=== PATIENT | female | born 1995 ===

== ENCOUNTER 2018-05-04 23:08 | Emergency (ER) | payer MEDICAID ==
--- NOTE | 2018-05-05 00:33 | ED PDOC ---
HPI: Psych/Substance Abuse Time Seen by Provider: 05/04/18 23:23 Chief Complaint (Nursing): Substance Abuse Chief Complaint (Provider): Psych ED Caveat: Uncooperative History Per: Patient, EMS Onset/Duration Of Symptoms: Hrs (today) Current Symptoms Are (Timing): Still Present Additional Complaint(s): Carlene Rodgers is a 23 year old female, with unknown past medical history, who was brought to the emergency department by EMS who state patient was running on the street without pants. Patient states she was running away from [facility]. Per family, patient states she likes being in the hospital and was recently admitted at [facility]. Patient is uncooperative with history taking and is refusing to answer questions. PMD: None provided. Past Medical History Reviewed: Historical Data, Nursing Documentation, Vital Signs, Unable To Obtain Vital Signs: Last Vital Signs Temp 98.4 F 05/04/18 23:12 Pulse 66 05/04/18 23:12 Resp 16 05/04/18 23:12 BP 116/64 05/04/18 23:12 Pulse Ox 99 05/04/18 23:12 - Family History Family History: States: Unknown Family Hx - Allergies Allergies/Adverse Reactions: Allergies Allergy/AdvReac Type Severity Reaction Status Date / Time Unobtainable Allergy Verified 05/04/18 23:12 Review of Systems Review Of Systems: ROS cannot be obtained secondary to pt's inabilty to answer questions. Physical Exam - Reviewed Nursing Documentation Reviewed: Yes Vital Signs Reviewed: Yes - Physical Exam Appears: Positive for: No Acute Distress Head Exam: Positive for: ATRAUMATIC, NORMAL INSPECTION, NORMOCEPHALIC Skin: Positive for: Normal Color, Warm, Dry Eye Exam: Positive for: Normal appearance, EOMI, PERRL Neck: Positive for: Painless ROM Cardiovascular/Chest: Positive for: Regular Rate, Rhythm. Negative for: Murmur Respiratory: Positive for: Normal Breath Sounds. Negative for: Respiratory Distress Gastrointestinal/Abdominal: Positive for: Normal Exam, Soft. Negative for: Tenderness Extremity: Positive for: Normal ROM (all extremities). Negative for: Deformity Neurologic/Psych: Positive for: Alert. Negative for: Oriented (cannot assess orientation, patient is uncooperative) - Laboratory Results Result Diagrams: 05/05/18 01:10 05/05/18 01:10 - ECG O2 Sat by Pulse Oximetry: 99 (RA) Pulse Ox Interpretation: Normal Medical Decision Making Medical Decision Making: Time: 23:23 Initial Impression: 23 y/o female with nonspecific psychiatric issue at this time. Patient is uncooperative and not allowing us to draw blood. Required 4- point restraints and Ativan, will also require crisis evaluation. Initial Plan: --Acetaminophen --Alcohol serum --BMP --Drug screen, urine --Salicylate --CBC w/ differential --Ativan 2 mg IM --Haldol 5 mg IM --1:1 Observation --Restraints --Urinalysis --Reevaluation 06:25 -Patient will be screened by [facility]. Patient becoming agitated and trying to hit 1 :1. Requiring additional four-point restraints and Ativan. 07:00 -Patient will be signed out to Dr. Rollins, pending [facility] screen. ----- Scribe Attestation: Documented by Huy Jung, acting as a scribe for Joaquin Catherine MD. Provider Scribe Attestation: All medical record entries made by the Scribe were at my direction and personally dictated by me. I have reviewed the chart and agree that the record accurately reflects my personal performance of the history, physical exam, medical decision making, and the department course for this patient. I have also personally directed, reviewed, and agree with the discharge instructions and disposition. Disposition - Clinical Impression Clinical Impression: Schizophrenia, Bipolar 1 disorder - Patient ED Disposition Is Patient to be Admitted: Transfer of Care - Disposition Disposition: Transfer of Care Disposition Time: 07:00 Condition: STABLE Forms: [facility] (Upper Sorbian) Patient Signed Over To: Charlie Rollins Handoff Comments: pending [facility] eval
[2018-05-05 01:13] LABS: BASO % 0.3 % (0.0-2.0); EOS # 0.1 K/uL (0.0-0.7); HEMOGLOBIN 13.1 g/dL (12.0-16.0); LYMPH # 3.1 K/uL (1.0-4.3); LYMPH % 31.6 % (20.0-40.0); MEAN CELL VOLUME 93.4 fl (81.0-99.0); MEAN CORPUSCULAR HEMOGLOBIN 31.6 pg (27.0-31.0); MEAN CORPUSCULAR HGB CONC 33.8 g/dL (33.0-37.0); MEAN PLATELET VOLUME 7.5 fl (7.2-11.7); MONO # 0.8 K/uL (0.0-0.8); MONO % 8.1 % (0.0-10.0); NEUT # 5.8 K/uL (1.8-7.0); NRBC % 0.1 % (0.0-0.0); RBC 4.16 Mil/uL (3.80-5.20); RED CELL DISTRIBUTION WIDTH 11.7 % (11.5-14.5); WHITE BLOOD COUNT 9.9 K/uL (4.8-10.8)
[2018-05-05 01:24] LABS: ACETAMINOPHEN < 10.0 ug/ml (10.0-30.0); BLOOD UREA NITROGEN 12 mg/dl (7-17); CALCIUM 9.4 mg/dL (8.4-10.2); GFR NON-AFRICAN AMERICAN > 60; SALICYLATE < 1.0 mg/dl
[2018-05-05 06:33] LABS: SQUAMOUS EPITHIAL 1 /hpf (0-5); URINE BACTERIA OCC (<OCC); URINE BILIRUBIN NEGATIVE (NEGATIVE); URINE BLOOD NEGATIVE (NEGATIVE); URINE CLARITY SLIGHTY-CLOUDY (Clear); URINE COLOR YELLOW (YELLOW); URINE GLUCOSE (UA) NEG (Normal); URINE LEUKOCYTE ESTERASE NEG Leu/uL (Negative); URINE PROTEIN 30 mg/dL (NEGATIVE); URINE UROBILINOGEN 0.2-1.0 mg/dL (0.2-1.0)
[2018-05-05 06:50] LABS: BARBITURATES, UR NEGATIVE (NEGATIVE); BENZODIAZEPINES, UR NEGATIVE (NEGATIVE); OPIATES, UR NEGATIVE (NEGATIVE); PHENCYCLIDINE, UR NEGATIVE (NEGATIVE)
--- NOTE | 2018-05-05 07:45 | ED PDOC ---
- Laboratory Results Result Diagrams: 05/05/18 01:10 05/05/18 01:10 - ECG O2 Sat by Pulse Oximetry: 100 Medical Decision Making Medical Decision Making: Medically stable for psychiatric admission Disposition - Clinical Impression Clinical Impression: Schizophrenia, Bipolar 1 disorder - POA Present On Arrival: None - Disposition Disposition: Transfer of Care Disposition Time: 15:00 Condition: FAIR Forms: [facility] (French) Patient Signed Over To: Judy Prince
--- NOTE | 2018-05-05 15:06 | RAD ---
Date of service: 05/05/2018 HISTORY: psychosis COMPARISON: No prior. FINDINGS: LUNGS: No active pulmonary disease. PLEURA: No significant pleural effusion identified, no pneumothorax apparent. CARDIOVASCULAR: Normal. OSSEOUS STRUCTURES: No significant abnormalities. VISUALIZED UPPER ABDOMEN: Normal. OTHER FINDINGS: None. IMPRESSION: No active disease.
--- NOTE | 2018-05-05 15:11 | ED PDOC ---
- Laboratory Results Result Diagrams: 05/05/18 01:10 05/05/18 01:10 - ECG O2 Sat by Pulse Oximetry: 99 (RA) Pulse Ox Interpretation: Normal Medical Decision Making Medical Decision Making: Time: 1500 -- Received endorsement from Dr. Rollins. Patient medically cleared on earlier shift and is accepted by [facility] for inpatient involuntary psychiatric unit, pending bed availability. 1930 Pt agitated. Ativan 2mg po. 12am Endorsed to Dr Paz. Pending bed availability. STable Scribe Attestation: Documented by Roz Goel acting as a scribe for Dr. Judy Prince. Provider Scribe Attestation: All medical record entries made by the Scribe were at my direction and personally dictated by me. I have reviewed the chart and agree that the record accurately reflects my personal performance of the history, physical exam, medical decision making, and the department course for this patient. I have also personally directed, reviewed, and agree with the discharge instructions and disposition. Disposition - Clinical Impression Clinical Impression: Schizophrenia, Bipolar 1 disorder - POA Present On Arrival: None - Disposition Disposition: Transfer of Care Disposition Time: 00:00 Condition: STABLE Forms: [facility] (Wolof)
--- NOTE | 2018-05-06 00:11 | ED PDOC ---
- Laboratory Results Result Diagrams: 05/05/18 01:10 05/05/18 01:10 - ECG O2 Sat by Pulse Oximetry: 99 (RA) Medical Decision Making Medical Decision Making: Time: 00:00 --Patient has already been accepted and was cleared medically on previous shift. Patient care endorsed from Dr. Prince to Dr. Paz pending [facility] bed availability. Scribe Attestation: Documented by Samuel Ko acting as a scribe for Kirti Paz MD. Provider Scribe Attestation: All medical record entries made by the Scribe were at my direction and personally dictated by me. I have reviewed the chart and agree that the record accurately reflects my personal performance of the history, physical exam, medical decision making, and the department course for this patient. I have also personally directed, reviewed, and agree with the discharge instructions and disposition. Disposition - Clinical Impression Clinical Impression: Schizophrenia, Bipolar 1 disorder - POA Present On Arrival: None - Disposition Disposition: Transfer of Care Disposition Time: 07:00 Condition: STABLE Patient Signed Over To: Charlie Rollins
--- NOTE | 2018-05-06 11:55 | CARD ---
APPROVED REPORT Date of service: 05/05/2018 EKG Measurement Heart [id number] <Conclusion> Normal sinus rhythm with sinus arrhythmia early repolarization otherwise normal ECG
--- NOTE | 2018-05-06 14:02 | ED PDOC ---
- Laboratory Results Result Diagrams: 05/05/18 01:10 05/05/18 01:10 - ECG O2 Sat by Pulse Oximetry: 100 Disposition - Clinical Impression Clinical Impression: Schizophrenia, Bipolar 1 disorder - POA Present On Arrival: None - Disposition Disposition: Transfer of Care Disposition Time: 15:00 Condition: FAIR Forms: [facility] (Setswana) Patient Signed Over To: Yakov Vázquez III
--- NOTE | 2018-05-06 17:09 | ED PDOC ---
- Laboratory Results Result Diagrams: 05/05/18 01:10 05/05/18 01:10 - ECG O2 Sat by Pulse Oximetry: 100 Medical Decision Making Medical Decision Making: received 3pm pending [facility] [place]. Patient with intermittent agitation, required additional dose ativan 2mg PO for anxiolysis and relief of agitation. 730p patient given haldol 5mg and benadryl 25mg IM for moderate agitation, pacing, and hope for improved lucidity 10pm Dr Powell psychiatry in ED for evaluation 12MN endorse Dr Prince overnight pending bed avail at [facility] Disposition - Clinical Impression Clinical Impression: Schizophrenia, Bipolar 1 disorder - POA Present On Arrival: None - Disposition Disposition: Transfer of Care Disposition Time: 23:50 Condition: STABLE Forms: [facility] (Welsh)
[2018-05-06] MEDS ORDERED: DiphenhydrAMINE 50 mg/ml Inj IM STA (19:40)
[2018-05-06] MEDS ORDERED: DiphenhydrAMINE 50 mg/ml Inj ONE (19:42)
--- NOTE | 2018-05-06 21:57 | CP.PCM.CON ---
History of Present Illness - History of Present Illness History of Present Illness: This is 22 yr old female with h/o bipolar disorder admitted because of bizarre behaviors and psychotic agitation and very poor historian with disorganized thinking.pt has been very labile and anxious to leave and says ."you are not my doctor." pt has remained with poor insight regarding her psychotic symptoms and says , I am fine " does not want to be admitted voluntarily.pt has been seen by screener from [facility] and accepted for involuntary admission. Past Patient History - Past Social History Smoking Status: Unknown If Ever Smoked - CARDIAC Hx Cardiac Disorders: (unable to assess) Hx Hypertension: (unable to assess) - PULMONARY Hx Tuberculosis: (unable to assess) - NEUROLOGICAL HX Cerebrovascular Accident: (unable to assess) Hx Seizures: (unable to assess) - HEMATOLOGICAL/ONCOLOGICAL Hx Cancer: (unable to assess) Hx Human Immunodeficiency Virus (HIV): (unable to assess) - GENITOURINARY/GYNECOLOGICAL Hx Sexually Transmitted Disorders: (unable to assess) - PSYCHIATRIC Hx Substance Use: (uknown) - SURGICAL HISTORY Hx Surgeries: No - ANESTHESIA Hx Anesthesia: No Meds Allergies/Adverse Reactions: Allergies Allergy/AdvReac Type Severity Reaction Status Date / Time Unobtainable Allergy Verified 05/04/18 23:12 - Medications Medications: Current Medications Lorazepam (Ativan) 2 mg IM PRN PRN PRN Reason: Agitation Last Admin: 05/05/18 07:00 Dose: 2 mg Physical Exam - Psychiatric Exam Psychiatric exam: Agitated, Flat Affect, Manic Additional comments: alert,oriented x3 with disorganized thinking and delusional and paranoid , responding to hallucinations .pt has poor insight and poor judgement .no suicidal ideation but unable to take care of herself. Results - Vital Signs Recent Vital Signs: Last Vital Signs Temp 97.9 F 05/06/18 19:45 Pulse 88 05/06/18 19:45 Resp 18 05/06/18 19:45 BP 118/77 05/06/18 19:45 Pulse Ox 99 05/06/18 19:45 - Labs Result Diagrams: 05/05/18 01:10 05/05/18 01:10 Assessment & Plan - Assessment and Plan (Free Text) Assessment: schizophrenia,paranoid type Plan: Continue 1:1 observation. haldol and benadryl prn transfer pt to [facility] when bed is available
--- NOTE | 2018-05-07 00:25 | ED PDOC ---
- Laboratory Results Result Diagrams: 05/05/18 01:10 05/05/18 01:10 - ECG O2 Sat by Pulse Oximetry: 100 Medical Decision Making Medical Decision Makin Received transfer of care from Dr. Vázquez. Patient awaiting transfer to [facility] involuntary psych unit. [address] Rollins pending transfer to [facility] involuntary psych unit. Scribe Attestation: Documented by Luca Urbina, acting as a scribe for Judy Prince MD. Provider Scribe Attestation: All medical record entries made by the Scribe were at my direction and personally dictated by me. I have reviewed the chart and agree that the record accurately reflects my personal performance of the history, physical exam, medical decision making, and the department course for this patient. I have also personally directed, reviewed, and agree with the discharge instructions and disposition. Disposition - Clinical Impression Clinical Impression: Schizophrenia, Bipolar 1 disorder - POA Present On Arrival: None - Disposition Disposition: Transfer of Care Disposition Time: 07:00 Condition: STABLE Patient Signed Over To: Charlie Rollins Handoff Comments: pending transfer to [facility]
[2018-05-07] MEDS ORDERED: DiphenhydrAMINE 50 mg/ml Inj ONE (02:09)
--- NOTE | 2018-05-07 07:08 | ED PDOC ---
- Laboratory Results Result Diagrams: 05/05/18 01:10 05/05/18 01:10 - ECG O2 Sat by Pulse Oximetry: 100 Disposition - Clinical Impression Clinical Impression: Schizophrenia, Bipolar 1 disorder - POA Present On Arrival: None - Disposition Disposition: Other Institution Disposition Time: 14:34 Condition: FAIR Forms: [facility] (Yakut)
--- NOTE | 2018-05-07 10:59 | CP.PCM.CON ---
History of Present Illness - History of Present Illness History of Present Illness: Psychiatry consult follow-up note CC: Bizarre behavior/ acute psychosis/ agitation HPI: 22 yo female presented acutely bizarre, agitated, paranoid and psychotic w / disorganized speech/thoughts. Patient acutely tired, is arousable, but falls back asleep and is unwilling to engage in interview at this time. She was medicated w/ PRN Haldol due to acute agitation last night. Patient was screened by [facility], accepted for involuntary psychiatric admission, pending bed and transfer. Impression: 22 yo female w/ primary psychotic disorder vs bipolar disorder w/ acute yury; pending bed and transfer to [facility] for involuntary psychiatric admission. -Haldol 5 mg PO/IM q8 hr PRN agitation; Benadryl 50 mg PO/IM q8 hr PRN agitation ; Ativan 2 mg PO/IM Q8 hr PRN agitation Past Patient History - Past Social History Smoking Status: Unknown If Ever Smoked - CARDIAC Hx Cardiac Disorders: (unable to assess) Hx Hypertension: (unable to assess) - PULMONARY Hx Tuberculosis: (unable to assess) - NEUROLOGICAL HX Cerebrovascular Accident: (unable to assess) Hx Seizures: (unable to assess) - HEMATOLOGICAL/ONCOLOGICAL Hx Cancer: (unable to assess) Hx Human Immunodeficiency Virus (HIV): (unable to assess) - GENITOURINARY/GYNECOLOGICAL Hx Sexually Transmitted Disorders: (unable to assess) - PSYCHIATRIC Hx Substance Use: (uknown) - SURGICAL HISTORY Hx Surgeries: No - ANESTHESIA Hx Anesthesia: No Meds Allergies/Adverse Reactions: Allergies Allergy/AdvReac Type Severity Reaction Status Date / Time Unobtainable Allergy Verified 05/04/18 23:12 - Medications Medications: Current Medications Hydroxyzine Pamoate (Vistaril) 25 mg PO HS PRN PRN Reason: Insomnia Lorazepam (Ativan) 2 mg IM PRN PRN PRN Reason: Agitation Last Admin: 05/07/18 09:24 Dose: 2 mg Lorazepam (Ativan) 1 mg PO TID PRN PRN Reason: Agitation Results - Vital Signs Recent Vital Signs: Last Vital Signs Temp 98.3 F 05/07/18 06:45 Pulse 92 H 05/07/18 06:45 Resp 18 05/07/18 06:45 BP 100/83 05/07/18 06:45 Pulse Ox 100 05/07/18 10:49 - Labs Result Diagrams: 05/05/18 01:10 05/05/18 01:10
[2018-05-07 17:21] VITALS: BP 125/80; PULSE 75; RESP 16; TEMP 97.9; O2SAT 100
== END 2018-05-07 17:21 | disposition short-term general hospital (02) ==
LOC: EDBD 23:08 → H.ER 23:08
DX: F20.0 Paranoid schizophrenia (principal); F31.9 Bipolar disorder, unspecified; I10 Essential (primary) hypertension; Z86.73 Personal history of transient ischemic attack (TIA), and cerebral infarction without residual deficits
CPT/HCPCS: 80048; 80320; 80324; 80329; 80345; 80346; 80349; 80353; 80358; 80361; 81003; 83992; 84703; 85025; 96372; 99285; J1200; J1630; J2060